=== PATIENT | male | born 1965 | race Caucasian/White ===

== ENCOUNTER 2018-05-04 05:53 | Day surgery (SDC) | payer BC ==
[2018-05-01 12:11] VITALS: BMI 47.5
[2018-05-04] MEDS ORDERED: Lidocaine 2% Jelly 5 ML TUBE ONE (08:06)
--- NOTE | 2018-05-04 09:26 | OP ---
DATE OF PROCEDURE: 05/04/2018 GI ENDOSCOPY NOTE SURGEON: Brodie Miller M.D. 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 PROCEDURE: Screening colonoscopy. INDICATIONS: Average risk colorectal cancer screening exam. This is the patient's first colonoscopy . MEDICATIONS: See anesthesia record. FINDINGS: After discussion of the risks, benefits and alternatives of the procedure, informed consen t was obtained and witnessed. Pre-endoscopic cardiopulmonary examination was satisfactory. Timeout was performed before sedation was achieved. Sedation was achieved with anesthesia assistance in the endoscopy unit. Digital rectal exam was performed which was unremarkable. A Pentax adult colonoscop e was inserted into the anus and passed forward to the cecum in the usual fashion. The cecal base wa s identified by the appendiceal orifice as well as the ileocecal valve. The terminal ileum was not i ntubated. The colonoscope was then slowly withdrawn in a gradual and circumferential manner with car eful examination of the entire colonic mucosa. The quality of the prep was good. The colonic mucosa appeared normal throughout. There were no polyps, mass lesions or any other mucosal abnormalities. Retroflexion in the rectum was unremarkable. The colonoscope was completely withdrawn and the patie nt allowed to recover. The patient tolerated the procedure well. There were no immediate post-proce dure complications. IMPRESSION: Normal colonoscopy to the cecum. RECOMMENDATIONS: Repeat colonoscopy for screening in 10 years.
[2018-05-04] MEDS ORDERED: PROPOFOL 200 MG/20 ML VIAL ONE (13:08)
== END 2018-05-04 09:20 | disposition home or self-care (01) ==
LOC: SDC 05:53
PROVIDERS: ATTEND Internal Medicine
PROC: 0DJD8ZZ Inspection of Lower Intestinal Tract, Via Natural or Artificial Opening Endoscopic (ICD-10-PCS; principal; 2018-05-04)
DX: Z12.11 Encounter for screening for malignant neoplasm of colon (principal); E66.9 Obesity, unspecified; G47.30 Sleep apnea, unspecified; Z68.42 Body mass index [BMI] 45.0-49.9, adult; Z79.899 Other long term (current) drug therapy
CPT/HCPCS: J2704

== ENCOUNTER 2019-07-28 11:57 | Outpatient (CLI) | payer BC ==
--- NOTE | 2019-07-28 13:02 | RAD ---
XR Ankle Lt 3 View STANDARD History: Sprain of left ankle Comparison: None. Findings: Old deltoid ligament injury. Ossicle of the dorsal aspect of the talar neck likely sequelae of prior capsular injury. Moderate dorsal and plantar calcaneal spurs. Abnormal medial malleolus soft tissue swelling. No lateral talar shift. No osteochondral defect of th e talar dome. Impression: Moderate medial soft tissue swelling seen in the distal tibia through the medial malleolu s without acute displaced fracture or malalignment.
== END 2019-07-28 11:58 | disposition home or self-care (01) ==
LOC: BICRAD 11:57
PROVIDERS: ATTEND Family Medicine
DX: S93.402A Sprain of unspecified ligament of left ankle, initial encounter (principal); M79.89 Other specified soft tissue disorders

== ENCOUNTER 2019-09-21 05:10 | Emergency (ER) | payer BC ==
[2019-09-21] MEDS ORDERED: Ibuprofen 800 MG TAB ONE (05:23)
[2019-09-21 05:36] LABS: #Lymphocytes 0.7 thou/uL (1.20-3.40); #Monocytes 0.8 thou/uL (0.11-0.59); #Neutrophils 6.5 thou/uL (1.40-6.50); %Basophils 0.1 % (0.0-1.0); %Eosinophils 0.1 % (0.0-10.0); %Lymphocytes 8.1 % (21.0-51.0); %Neutrophils 81.6 % (42.0-75.0); Hemoglobin 16.3 g/dL (14.0-18.0); Mean Corpuscular HGB CONC 33.6 g/dL (32.0-36.0); Mean Corpuscular Hemoglobin 31.3 pg (27.0-31.0); Mean Corpuscular Volume 93.2 fL (78.0-98.0); Mean Platelet Volume 8.3 fL (7.4-10.4); Platelet Count 143 thou/uL (130-400); RBC Distribution Width 11.9 % (11.5-14.5); Red Blood Cell (RBC) Count 5.19 mill/uL (4.70-6.10)
[2019-09-21 05:59] LABS: ALT (SGPT) 22 U/L (8-55); AST (SGOT) 19 U/L (5-34); Albumin 4.5 g/dL (3.5-5.0); Alkaline Phosphatase 100 U/L (40-110); Anion Gap 13 mmol/L (10-20); BUN (Urea Nitrogen) 20 mg/dL (8.4-25.7); Bilirubin, Total 1.1 mg/dL (0.2-1.2); Calc. Creatinine Clearance 0 mL/min (70-130); Calcium 9.4 mg/dL (7.8-10.44); Carbon Dioxide 24 mmol/L (22-29); Chloride 104 mmol/L (98-107); Estimated GFR-MDRD 52; Globulin 2.8 g/dL (2.4-3.5); Glucose 116 mg/dL (70-105); Potassium 3.9 mmol/L (3.5-5.1); Protein, Total 7.3 g/dL (6.0-8.3); Sodium 137 mmol/L (136-145)
--- NOTE | 2019-09-21 07:46 | RAD ---
XR Chest 1 View Portable HISTORY: Cough, fever COMPARISON: None FINDINGS: The heart size is normal. The lungs are well expanded without focal areas of consolidation, pneumothorax or pleural effusions. IMPRESSION: No radiographic evidence of acute cardiopulmonary process.
== END 2019-09-21 06:34 | disposition home or self-care (01) ==
LOC: ERS 05:10
DX: J10.1 Influenza due to other identified influenza virus with other respiratory manifestations (principal)
CPT/HCPCS: 71045; 80053; 83605; 85025; 87040; 87804; 96360; 96361